=== PATIENT | female | born 1980 | race African-American/Black ===

== ENCOUNTER 2016-11-06 06:20 | Day surgery (SDC) | payer MEDICARE ==
--- NOTE | ~2016-11-06 | OP ---
Record Of Operation [facility] [address] [place]. [address] NAME: VIDHI MALDONADO : 84 STATUS : [facility]#: [id number] AGE: 36 ADM/REG DATE : 11/06/16 MR#: [id number] REPORT SERV DATE: 11/06/16 DICTATED BY: PRANAV BARNEY III DATE: 11/06/16 REPORT STATUS : Draft TRANSCRIBED BY: HERSON DATE: 11/06/16 DATE OF PROCEDURE: 11/06/2016 PROCEDURE: Cystoscopy, left retrograde, stone fragmentation and insertion of double-J stent. PREOPERATIVE DIAGNOSIS: Left ureteral calculus with pain of several months' duration, approximately 1 cm in size. DESCRIPTION OF PROCEDURE: Following induction of adequate general anesthesia, the patient was placed in the dorsal lithotomy position, prepped and draped in a sterile fashion. The urethra was entered and noted to be normal. The bladder was unremarkable. A retrograde showed the stone to be occluding with trickle of dye up into a dilated system. Initially a wire was hard to place and I had to place it with a Pollack and after a good bit of manipulation, I was able to pass it into the upper tract. I then passed a [id number]-[id number] Ecuadorean sheath below the stone under fluoroscopic guidance. A second wire was placed in the system and the access sheath placed over the working wire. A flexible scope was placed up to the stone and it was visible but it was impacted with inflammatory tissue. I was able to see a good bit of a stone, it was 200 fiber on the dusting and fracturing settings. I was able to break the stone up into a number of small fragments. They eventually came loose from the whitman of the ureter and migrated up into the kidney. The site of the stone impaction was a little tight. It was too tight to allow the sheath to be placed up in the kidney, so the ureteroscope was placed and an additional fragmentation was done. The kidney was emptied approximately every 8 to 10 minutes to keep from over distending it. At the dusting setting, the stone broke up very nicely. I saw no fragments larger than 2, maybe 3, maybe 1, or maybe 3 mm. At this point, I had been working for well over an hour and I felt if her kidney had dilated, her system was massively dilated preop. I placed a 11/25 inlay Mcclelland stent with a loop in the upper pole and a loop in the bladder. She tolerated the procedure well. I called her relative or family member and explained to her that the patient would have to have the stent removed whether it hurt or not; it could not stay indefinitely or it could encrust. She has to come to see me in [id number] weeks, and we will do a KUB and consider removing it. OB/MODL Pranav Barney III, M.D. / [id number] CC: Cornelio Cardenas III
[~2016-11-06 06:20] MED LIST: ADALAT CC30 MG PO; CYMBALTA30 PO; K-TABS10 MEQ PO; NAUSEA MED; PAIN MED
== END 2016-11-06 11:58 | disposition home or self-care (01) ==
LOC: SDC 06:20
PROVIDERS: Urology
PROC: 0T778DZ Dilation of Left Ureter with Intraluminal Device, Via Natural or Artificial Opening Endoscopic (ICD-10-PCS; 2016-11-06)
PROC: 0TF78ZZ Fragmentation in Left Ureter, Via Natural or Artificial Opening Endoscopic (ICD-10-PCS; principal; 2016-11-06 07:45)
DX: N20.1 Calculus of ureter (principal); Z79.899 Other long term (current) drug therapy
CPT/HCPCS: 74420; 84703; 93005; C1758; C1769; C1894; C2617; J2250; J2370; J2405; J2710; J3010; Q9967